=== PATIENT | male | born 1995 | race Caucasian/White ===

== ENCOUNTER 2017-11-02 19:50 | Emergency (ER) | payer MEDICAID | END 2017-11-03 00:22 | disposition home or self-care (01) | LOC: FTE 11-03 00:22 | DX: S70.02XA Contusion of left hip, initial encounter (principal); S80.02XA Contusion of left knee, initial encounter; S39.012A Strain of muscle, fascia and tendon of lower back, initial encounter; V49.40XA Driver injured in collision with unspecified motor vehicles in traffic accident, initial encounter | CPT/HCPCS: 70450; 72100; 73510; 73562; 99284-25 ==